=== PATIENT | male | born 1995 | race Caucasian/White ===

== ENCOUNTER 2020-09-08 06:55 | Emergency (ER) | payer OTHER ==
[2020-09-08 06:59] VITALS: BP 125/76; PULSE 78; TEMP 98.3; BMI 27.3
[2020-09-08] MEDS ORDERED: IBUPROFEN 600 MG TABLET (FP) PO ONE ×2 (07:22→07:34)
== END 2020-09-08 08:35 | disposition home or self-care (01) ==
LOC: JER 06:55
DX: M79.671 Pain in right foot (principal)
CPT/HCPCS: 73630-TC-LT; 99283-25

== ENCOUNTER 2021-09-07 00:31 | Emergency (ER) | payer SELFPAY ==
[2021-09-07 01:27] VITALS: BP 134/87; PULSE 81; TEMP 97.9; BMI 21.2
[2021-09-07 02:11] LABS: PH,URINE 5.5 (5.0-8.0); URINE APPEARANCE CLEAR; URINE BILIRUBIN NEGATIVE (NEGATIVE); URINE COLOR YELLOW; URINE GLUCOSE (UA) NEGATIVE (NEGATIVE); URINE KETONE 3+ (NEGATIVE); URINE LEUK ESTERASE NEGATIVE (NEGATIVE); URINE NITRITE NEGATIVE (NEGATIVE); URINE PROTEIN TRACE (NEGATIVE)
== END 2021-09-07 04:16 | disposition home or self-care (01) ==
LOC: JER 00:31
DX: R30.0 Dysuria (principal)
CPT/HCPCS: 36415; 81003; 82962; 87086; 87491; 87591; 87661; 99283-25